=== PATIENT | male | born 1975 | race Caucasian/White ===

== ENCOUNTER 2021-01-03 23:03 | Emergency (ER) | payer BC ==
[~2021-01-03] VITALS: Ht 190.5 cm; Wt 79.5 kg
[2021-01-03] MEDS ORDERED: FAMO20TA PO (23:23)
[2021-01-03] MEDS ORDERED: CLAR5TAB11 PO (23:23)
[2021-01-03] MEDS ORDERED: ZOLO100T PO (23:23)
[2021-01-03] MEDS ORDERED: MOME50SP NARES (23:23)
[2021-01-03] MEDS ORDERED: NS 1,000 ML IV ONE (23:30)
[2021-01-03 23:45] LABS: VENOUS BASE EXCESS -1.2 (-2.0-2.0); VENOUS HCO3 25.5 MEQ/L (23.0-27.0); VENOUS PARTIAL PRESSURE CO2 50.1 mmHg (38.0-50.0); VENOUS PARTIAL PRESSURE O2 46.5 mmHg (30.0-50.0); VENOUS PH 7.325 UNITS (7.330-7.430); VENOUS STANDARD HCO3 23.1 MEQ/L; VENOUS TOTAL CO2 27.1 MEQ/L (24.0-28.0)
[2021-01-03] MEDS ORDERED: ISOVUE-370 76% 100ML VIAL As Ordered ONE (23:54)
[2021-01-04 00:11] LABS: BASO # 0.1 10^3/uL (0.0-0.2); BASO % 1.4 % (0.0-1.0); EOS # 0.3 10^3/uL (0.0-0.5); EOS % 4.6 % (0.0-3.0); HEMATOCRIT 44.9 % (42.0-52.0); HEMOGLOBIN 14.8 g/dl (13.5-17.5); LYMPH % 40.5 % (24.0-44.0); MEAN CORPUSCULAR HEMOGLOBIN 29.4 pg (27.0-33.0); MEAN CORPUSCULAR VOLUME 89.1 fl (80.0-96.0); MONO # 0.7 10^3/uL (0.0-0.8); MONO % 9.6 % (2.0-8.0); NEUTROPHILS # 3.2 10^3/uL (1.5-8.5); NEUTROPHILS % 43.2 % (36.0-66.0); PLATELET COUNT, AUTOMATED 265 10^3/uL (150-450); RED BLOOD COUNT 5.04 10^6/uL (4.30-6.10); WHITE BLOOD COUNT 7.4 10^3/uL (4.0-10.0)
[2021-01-04 00:24] LABS: ACETAMINOPHEN LEVEL < 2.0 UG/ML (10.0-30.0); ALBUMIN 4.2 GM/DL (3.2-5.2); ALT/SGPT 31 U/L (12-78); BILIRUBIN,DIRECT < 0.1 MG/DL (0.0-0.2); BILIRUBIN,TOTAL 0.3 MG/DL (0.2-1.0); BLOOD UREA NITROGEN 12 MG/DL (7-18); CALCIUM LEVEL 8.9 MG/DL (8.5-10.1); CARBON DIOXIDE LEVEL 27 MEQ/L (21-32); CHLORIDE LEVEL 104 MEQ/L (98-107); CK-MB VALUE MASS < 1.0 NG/ML (<3.6); CPK CREATINE PHOSPHOKINASE 204 U/L (39-308); CREATININE FOR GFR 1.32 MG/DL (0.70-1.30); ETHYL ALCOHOL (ETHANOL) < 0.003 % (0.000-0.010); GLOMERULAR FILTRATION RATE > 60.0 (>60); GLUCOSE, FASTING 93 MG/DL (70-100); MB/CK RELATIVE INDEX 0.49 (< OR =4); POTASSIUM SERUM 3.9 MEQ/L (3.5-5.1); SALICYLATE LEVEL < 1.7 MG/DL (5.0-30.0); SODIUM LEVEL 140 MEQ/L (136-145); TOTAL PROTEIN 7.6 GM/DL (6.4-8.2); TROPONIN I < 0.02 NG/ML (< 0.10)
[2021-01-04 00:43] LABS: AMPHETAMINES LEVEL URINE NEGATIVE (NEGATIVE); BARBITURATES URINE NEGATIVE (NEGATIVE); BENZODIAZEPINES URINE NEGATIVE (NEGATIVE); CANNABINOIDS URINE NEGATIVE (NEGATIVE); COCAINE METABOLITE URINE NEGATIVE (NEGATIVE); METHADONE URINE NEGATIVE (NEGATIVE); OPIATES URINE NEGATIVE (NEGATIVE); PHENCYCLIDINE URINE NEGATIVE (NEGATIVE)
--- NOTE | 2021-01-04 01:46 | REPVR ---
PROCEDURE INFORMATION: Exam: CT Head Without Contrast Exam date and time: 01/03/2021 11:26 PM Age: 45 years old Clinical indication: Other: Seizure; Additional info: Altered mental status TECHNIQUE: Imaging protocol: Computed tomography of the head without contrast. Radiation optimization: All CT scans at this facility use at least one of these dose optimization techniques: automated exposure control; mA and/or kV adjustment per patient size (includes targeted exams where dose is matched to clinical indication); or iterative reconstruction. COMPARISON: No relevant prior studies available. FINDINGS: Brain: Right frontal convexity 3.1 x 2.7 cm hypodense heterogeneous lesion with peripheral linear areas of calcification. Recommend follow-up with MRI to better assess if represents a mass such as oligodendroglioma. Cerebral ventricles: No ventriculomegaly. Paranasal sinuses: Right frontal sinus mucous retention cyst. Mastoid air cells: Visualized mastoid air cells are well aerated. Bones/joints: Unremarkable. No acute fracture. Soft tissues: Unremarkable. IMPRESSION: Right frontal convexity 3.1 x 2.7 cm hypodense heterogeneous lesion with peripheral linear areas of calcification. Recommend follow-up with MRI to better assess if represents a mass such as oligodendroglioma. Electronically signed by: Bhanu Ferguson On 01/04/2021 01:45:48 AM
--- NOTE | 2021-01-04 02:00 | REPVR ---
PROCEDURE INFORMATION: Exam: CTA Chest With Contrast Exam date and time: 01/03/2021 11:35 PM Age: 45 years old Clinical indication: Pain; Other: Back; Additional info: Syncope/seizure? , Back pain, prominent aortic pulse TECHNIQUE: Imaging protocol: Computed tomographic angiography of the chest with contrast. 3D rendering (Not supervised by radiologist): MIP and/or 3D reconstructed images were created by the technologist. Radiation optimization: All CT scans at this facility use at least one of these dose optimization techniques: automated exposure control; mA and/or kV adjustment per patient size (includes targeted exams where dose is matched to clinical indication); or iterative reconstruction. Contrast material: ISO; Contrast volume: 100 ml; Contrast route: INTRAVENOUS (IV); COMPARISON: No relevant prior studies available. FINDINGS: PULMONARY ARTERIES: Diameter of the main pulmonary trunk at 2.8 cm is within normal range. Enhancement within the pulmonary arteries is preserved bilaterally to the proximal segmental levels, without evidence of central acute appearing occlusive pulmonary emboli. Distal evaluation is not reliably evaluated on this exam, secondary to suboptimal pulmonary arterial contrast bolus. HEART AND AORTA: Cardiothoracic ratio is within normal range. No significant pericardial effusion. Evaluation of the aortic root and proximal ascending thoracic aorta is slightly compromised by cardiac motion artifact. The ascending thoracic aorta is at the upper end of normal in diameter at 39 x 39.6 mm transversely. No thoracic aortic dissection is seen otherwise. Visualized proximal great vessels within the superior mediastinum are preserved. MEDIASTINUM: No mediastinal gas. The visualized thyroid gland is homogeneous. There is some soft tissue stranding within the anterior mediastinal fat, most likely residual thymic tissue. No mediastinal hematoma seen. Small amount of fluid seen within the pericardial recesses. Mediastinal and hilar lymph nodes are noted but no obvious lymphadenopathy by size criteria. No hiatal hernia or periesophageal inflammatory changes seen. LUNGS: The lungs are symmetric in expansion. There is no consolidation, pneumothorax or significant pleural effusion. Mild dependent subpleural atelectasis is noted at the lung bases. No evidence of an acute interstitial or airspace infiltrate. No suspicious pulmonary parenchymal mass. No bronchiectasis or peribronchial thickening. UPPER ABDOMEN: Please refer to same-day CT abdomen report. MSK AND BODY WALL: Mild degenerative changes of the spine. No acute osseous injury or suspicious bone lesion is seen. IMPRESSION: Aortic diameter is borderline with the ascending portion measuring up to 39.6 mm in diameter. Evaluation of the aortic root and proximal ascending thoracic aorta is slightly compromised by cardiac motion artifact. No evidence of a thoracic aortic dissection is seen otherwise. Other incidental findings discussed above. Electronically signed by: Randy Cabezas On 01/04/2021 01:59:51 AM
--- NOTE | 2021-01-04 02:11 | REPVR ---
PROCEDURE INFORMATION: Exam: CTA Abdomen and Pelvis With Contrast Exam date and time: 01/03/2021 11:35 PM Age: 45 years old Clinical indication: Pain; Other: Back; Additional info: Syncope/seizure? , Back pain, prominent aortic pulse TECHNIQUE: Imaging protocol: Computed tomographic angiography of the abdomen and pelvis with contrast material. 3D rendering (Not supervised by radiologist): MIP and/or 3D reconstructed images were created by the technologist. Radiation optimization: All CT scans at this facility use at least one of these dose optimization techniques: automated exposure control; mA and/or kV adjustment per patient size (includes targeted exams where dose is matched to clinical indication); or iterative reconstruction. Contrast material: ISO; Contrast volume: 100 ml; Contrast route: INTRAVENOUS (IV); COMPARISON: No relevant prior studies available. FINDINGS: LUNG BASES: Please refer to same-day CT chest report for complete findings. VASCULAR: No abdominoaortic aneurysm, dissection, or retroperitoneal hematoma. The celiac axis, superior mesenteric artery, bilateral renal arteries and inferior mesenteric artery are patent. The abdominoaortic bifurcation, common iliac bifurcation and common femoral bifurcations are patent. Non significant appearing iliac atherosclerosis is noted. PERITONEAL : No free air. Trace amount of simple appearing free fluid is seen within the pelvis. This is abnormal in a male patient. GI: No hiatal hernia. The stomach is slightly distended with ingested material, fluid and gas. The distal stomach stomach is not sufficiently distended to evaluate wall thickening. Any gastric symptoms to be correlated clinically or by dedicated evaluation of the stomach. Non-specific fluid-filled loops of small bowel seen. There is no appearance to suggest a bowel obstruction. No focal mesenteric inflammatory stranding is seen. Mild gastroenteritis would be difficult to entirely exclude on this exam. Scattered fecal material and gas within portions of the colon and rectum could be correlated for mild constipation. No evidence of acute diverticulitis. The appendix does not appear inflamed. The sigmoid colon and rectum appear slightly thick-walled which could be correlated with any symptoms but may be artifactual secondary to insufficient distention. HEPATOBILIARY, PANCREAS, SPLEEN: Hepatic length is 16.9 cm. Attenuation of the liver is suggestive of mild steatosis. No calcified gallstones or significant biliary dilation. No pancreatic inflammation. Spleen not enlarged. ADRENALS, KIDNEYS, BLADDER, RETROPERITONEAL: Adrenals within normal limits. No hydronephrosis. Symmetric renal enhancement. No perinephric stranding or fluid. Hypodense renal lesions noted bilaterally up to 5.4 cm in diameter on the right without any suspicious features, consistent with cysts. No further imaging workup for these lesions is necessary, based upon this appearance. Mildly distended urinary bladder. No perivesical stranding. Heterogeneous moderate enlargement of the prostate. There is a 12 mm area of nodular enhancement along the base of the urinary bladder (image 132, series 407). This could be secondary to prostate enlargement but bladder mass cannot be excluded. Clinical correlation and follow-up is advised. Correlation with PSA may also be helpful. Prostate calcifications noted. MUSCULOSKELETAL: Small fat containing umbilical hernia. Prominent fat within the inguinal canals. Mild degenerative disc disease of the lower lumbar spine. There is paracentral left disc bulging extending into the left L4/5 foraminal zone and posterior disc displacement at L5/S1 contacting the S1 nerve roots in the subarticular zones. Degenerative changes along the sacroiliac joints noted. Mild degenerative changes within the pelvis. IMPRESSION: No abdominoaortic aneurysm or dissection. Trace amount of free fluid within the pelvis. The cause of this is uncertain but this is abnormal in a male patient. Nonspecific gastrointestinal findings to be correlated clinically are discussed above. Nonemergent genitourinary findings and recommendations discussed above. Other incidental findings discussed above. Electronically signed by: Randy Cabezas On 01/04/2021 02:10:37 AM
[2021-01-04] MEDS ORDERED: levETIRAcetam INJection 1,000 MG in D5W 100 ML IV ONE (02:25)
[2021-01-04 04:26] LABS: RSV AMPLIFICATION NEGATIVE (NEGATIVE)
--- NOTE | 2021-01-04 05:21 | REPVR ---
PROCEDURE INFORMATION: Exam: MRA Head Without Contrast; Arteriography Exam date and time: 01/04/2021 2:25 AM Age: 45 years old Clinical indication: Abnormal findings; Abnormal CT of the head; Additional info: Seizure, question of mass on CT TECHNIQUE: Imaging protocol: Magnetic resonance angiography head without contrast. Exam focused on the arteries. COMPARISON: CT Head without contrast 2021-01-04 00:01 FINDINGS: ANTERIOR CIRCULATION: Right internal carotid artery: Intracranial segment is patent with no significant stenosis. No aneurysm. Right middle cerebral artery: No occlusion or significant stenosis. No aneurysm. Right anterior cerebral artery: No occlusion or significant stenosis. No aneurysm. Left internal carotid artery: Intracranial segment is patent with no significant stenosis. No aneurysm. Left middle cerebral artery: No occlusion or significant stenosis. No aneurysm. Left anterior cerebral artery: No occlusion or significant stenosis. No aneurysm. POSTERIOR CIRCULATION: Right vertebral artery: No occlusion or significant stenosis. No aneurysm. Left vertebral artery: No occlusion or significant stenosis. No aneurysm. Basilar artery: No occlusion or significant stenosis. No aneurysm. Right posterior cerebral artery: No occlusion or significant stenosis. No aneurysm. Left posterior cerebral artery: No occlusion or significant stenosis. No aneurysm. IMPRESSION: No stenosis or occlusion. Electronically signed by: Bhanu Ferguson On 01/04/2021 05:21:18 AM
--- NOTE | 2021-01-04 05:30 | REPVR ---
PROCEDURE INFORMATION: Exam: MR Head Without Contrast Exam date and time: 01/04/2021 2:25 AM Age: 45 years old Clinical indication: Abnormal findings; Abnormal radiologic findings of head/skull; Intracranial mass/space-occupying lesion; Additional info: Seizure, question of mass on CT TECHNIQUE: Imaging protocol: MR of the head without contrast. COMPARISON: CT Head without contrast 2021-01-04 00:01 FINDINGS: Brain: Right frontal lobe cortical mass measuring 4.1 x 3.3 x 3.1 cm with areas of linear calcification. Differential diagnosis includes oligodendroglioma, astrocytoma, and ganglia glioma. Recommend postcontrast MR images to further improve specificity. Cerebral ventricles: Normal. No ventriculomegaly. Bones/joints: Unremarkable. Paranasal sinuses: Normal as visualized. No acute sinusitis. Mastoid air cells: Normal as visualized. No mastoid effusion. Orbital cavity: Unremarkable. Soft tissues: Unremarkable. IMPRESSION: Right frontal lobe cortical mass measuring 4.1 x 3.3 x 3.1 cm with areas of linear calcification. Differential diagnosis includes oligodendroglioma, astrocytoma, and ganglia glioma. Recommend postcontrast MR images to further improve specificity. Electronically signed by: Bhanu Ferguson On 01/04/2021 05:29:54 AM
[2021-01-04] MEDS ORDERED: dexameTHASONE 20MG/5ML VIAL (J1100 PER 1MG) IV ONE (05:45)
[2021-01-04 07:15] VITALS: BP 126/84
--- NOTE | 2021-01-05 04:21 | ECGEPIP ---
[facility] - ED Test Date: 2021-01-03 Pat Name: SHRUTI BURNETTE Department: Room: - Gender: Male Set Rider: JORDAN : 1975 Requested By: SIVA Carlton Order Number: [id number] Reading MD: Rupesh Renee Measurements Intervals [place] Rate: 75 P: 66 SC: 142 QRS: 49 QRSD: 96 T: 60 QT: 406 QTc: 453 Interpretive Statements Normal sinus rhythm INCOMPLETE RIGHT BUNDLE BRANCH BLOCK NO PRIORS FOR COMPARISON Electronically Signed on 01-05-2021 4:20:55 EDT by Rupesh Renee
== END 2021-01-04 07:21 | disposition short-term general hospital (02) ==
LOC: M ED 23:03
DX: R56.9 Unspecified convulsions (principal); G93.89 Other specified disorders of brain; M54.9 Dorsalgia, unspecified; F41.9 Anxiety disorder, unspecified
CPT/HCPCS: 70450; 70544; 70551; 71275; 74174; 80047; 80048; 80076; 80143; 80307; 82077; 82550; 82553; 82803; 83605; 84443; 85025; 87631; 93005; 93041; 96361; 96365; 96366; 96375; 99285; J1100; J1953; Q9967